=== PATIENT | female | born 1995 | race Caucasian/White ===

== ENCOUNTER 2022-02-23 23:57 | Day surgery (SDC) | payer MEDICAID ==
[2022-02-24] MEDS ORDERED: hydrALAZINE 20 MG/ML VIAL SLOW IVP PRN (01:18)
[2022-02-24] MEDS ORDERED: Ondansetron ODT 8 MG TAB SL SCH (02:00)
== END 2022-02-24 02:22 | disposition home or self-care (01) ==
LOC: CSHLD/OP 23:57
PROVIDERS: ATTEND Obstetrics & Gynecology
DX: O21.2 Late vomiting of pregnancy (principal); O47.03 False labor before 37 completed weeks of gestation, third trimester; Z3A.33 33 weeks gestation of pregnancy; Z79.899 Other long term (current) drug therapy; Z90.49 Acquired absence of other specified parts of digestive tract; Z98.890 Other specified postprocedural states
CPT/HCPCS: 99282; Q0162